=== PATIENT | male | born 1945 | race Hispanic/Latino ===

== ENCOUNTER 2017-07-07 03:53 | Observation (INO) | payer OTHER, MEDICARE ==
[~2017-07-07] VITALS: Ht 175.3 cm; Wt 87.3 kg
[~2017-07-07 03:53] MED LIST: ASPI-555 PO; CETI10TA57 PO; CLOP75TA14 PO; FURO40TA5 PO; GABA-531 PO; HUMLIS7525 SQ; LISI-617 PO; OMEP40CA37 PO; ROSU20TA PO
[2017-07-07] MEDS ORDERED: IBUPROFEN 400 MG TABLET ONE (03:59)
[2017-07-07] MEDS ORDERED: SODIUM CHLORIDE 0.9% 1000ML 1,000 ML IV ONE ×2 (03:59→05:59)
[2017-07-07 04:20] LABS: BASOPHILS % (AUTO) 0.9 % (0.0-5.0); EOSINOPHILS % (AUTO) 1.1 % (0.0-8.0); MEAN CORPUSCULAR HEMOGLOBIN 30.9 pg (27.0-33.0); MEAN CORPUSCULAR HGB CONC 33.9 g/dL (32.0-36.0); MEAN CORPUSCULAR VOLUME 91.2 fL (79-99); MONOCYTES % (AUTO) 5.2 % (3.0-13.0); NEUTROPHILS % (AUTO) 84.8 % (40.0-77.0); PLATELET COUNT (AUTO) 212 K/uL (130-400); RED CELL DISTRIBUTION WIDTH 13.8 % (11.0-15.5); WHITE BLOOD COUNT (AUTO) 13.4 K/uL (4.8-10.8)
[2017-07-07 04:29] LABS: CARBON DIOXIDE 25 mmol/L (21-32); CHLORIDE 99 mmol/L (101-111); CREATININE 2.3 mg/dL (0.5-1.5); GLOMERULAR FILTR. RATE CALC 30 mL/min (>60); GLUCOSE,RANDOM 164 mg/dL (70-105); POTASSIUM 4.6 mmol/L (3.5-5.1); SODIUM SERUM 137 mmol/L (136-145); UREA NITROGEN, BLOOD 32 mg/dL (7-18)
[2017-07-07] MEDS ORDERED: ONDANSETRON HCL 4 MG/2 ML VIAL ONE (04:31)
[2017-07-07] MEDS ORDERED: CEFTRIAXONE SODIUM 1 GM ONE (04:31)
[2017-07-07 04:32] LABS: INR 1.09 (0.85-1.15); PARTIAL THROMBOPLASTIN TIME 28.4 SEC (26.3-35.5); PROTHROMBIN TIME 11.4 SEC (9.6-11.6)
[2017-07-07] MEDS ORDERED: MORPHINE SULFATE 4 MG/1ML SYG ONE (04:32)
[2017-07-07 04:38] LABS: APPEARANCE,URINE Turbid (CLEAR); BILIRUBIN,URINE Negative (NEGATIVE); COLOR,URINE Yellow (YELLOW); GLUCOSE, URINE (UA) Negative (NEGATIVE); KETONES,URINE Trace mg/dL (NEGATIVE); LEUKOCYTE ESTERASE ,URINE Large (NEGATIVE); NITRATE,URINE Negative (NEGATIVE); OCCULT BLOOD,URINE Moderate (NEGATIVE); PH,URINE 5.5 (5.0-8.0); PROTEIN,URINE 300 (NEGATIVE)
[2017-07-07 04:44] LABS: ALANINE AMINOTRANSFERASE 19 U/L (12-78); ALBUMIN 3.8 g/dL (3.5-5.0); ASPARTATE AMINOTRANSFERASE 20 U/L (10-37); BILIRUBIN,TOTAL 0.9 mg/dL (0.2-1.0); CREATINE KINASE MB 1.1 ng/mL (0.5-3.6); CREATINE KINASE, TOTAL 123 U/L (21-232); MYOGLOBIN 141 ng/mL (10-92); TOTAL PROTEIN, SERUM 8.3 g/dL (6.0-8.3); TROPONIN I < 0.04 ng/mL (0.00-0.06)
[2017-07-07 04:54] LABS: BACTERIA,URINE Few /HPF (None Seen); MUCUS,URINE Rare LPF (None Seen); SQUAMOUS EPITHELIAL CELL,UR Rare /LPF (0-2)
[2017-07-07 04:55] LABS: AMORPHOUS SEDIMENT,UR Few /LPF (None Seen)
[2017-07-07] MEDS ORDERED: SODIUM CHLORIDE 0.9% 1000ML 1,000 ML IV SCH (06:59)
[2017-07-07] MEDS ORDERED: HYDRALAZINE HCL 20 MG/ML VIAL IV PRN (07:00)
[2017-07-07] MEDS ORDERED: ACETAMINOPHEN 325 MG TAB PO PRN ×2 (07:00)
[2017-07-07] MEDS ORDERED: GUAIFENESIN-DM 200/20 MG 10 ML PO PRN (07:00)
[2017-07-07] MEDS ORDERED: CEFTRIAXONE 1GM/D5W 50ML 50 ML IV SCH (07:00)
[2017-07-07] MEDS ORDERED: NITROGLYCERIN 0.4 MG SL TAB SL PRN (07:00)
[2017-07-07] MEDS: INSULIN HUMULIN R 100 UNIT/ML 3ML SQ SCH ×4 (07:30→21:48)
[2017-07-07 07:35] VITALS: BP 111/68
[2017-07-07] MEDS ORDERED: CEFTRIAXONE SODIUM 1 GM IVP SCH (09:00)
[2017-07-07] MEDS ORDERED: MORPHINE SULFATE 4 MG/1ML SYG IV PRN (09:30)
[2017-07-07] MEDS: MORPHINE SULFATE 2 MG/ML 1ML SYG IVP PRN ×2 (09:49→18:13)
[2017-07-07] MEDS: FAMOTIDINE 20MG TAB 20 MG TAB PO SCH ×2 (09:50→21:50)
[2017-07-07] MEDS: ONDANSETRON HCL 4 MG/2 ML VIAL IV PRN (09:51)
[2017-07-07] MEDS ORDERED: MEROPENEM 500MG+NS 50ML 50 ML IV SCH (10:15)
[2017-07-07 11:00] VITALS: BP 98/60
[2017-07-07] MEDS: MEROPENEM 500 MG VIAL IVP SCH ×2 (11:30→18:13)
[2017-07-07 12:32] VITALS: BP 128/69
[2017-07-07 13:46] LABS: ABG BASE EXCESS -6.9 mmol/L (-2.0-3.0); ABG HCO3 16.7 mmol/L (21.0-28.0); ABG PCO2 29 mmHg (35-48)
[2017-07-07 15:00] VITALS: BP 101/57
[2017-07-07 19:05] VITALS: BP 118/68
[2017-07-07 23:05] VITALS: BP 120/68
[2017-07-08 03:45] VITALS: BP 135/71
[2017-07-08] MEDS ORDERED: WATER FOR INJECTION,STERILE 20 ML VIAL ONE ×2 (03:57→20:23)
[2017-07-08] MEDS: MEROPENEM 500 MG VIAL IVP SCH ×3 (04:01→21:54)
[2017-07-08 06:20] LABS: HEMATOCRIT 35.8 % (42-54); MEAN CORPUSCULAR HEMOGLOBIN 30.7 pg (27.0-33.0); MEAN CORPUSCULAR HGB CONC 33.6 g/dL (32.0-36.0); MEAN CORPUSCULAR VOLUME 91.4 fL (79-99); PLATELET COUNT (AUTO) 123 K/uL (130-400); RED BLOOD CELL COUNT(AUTO) 3.91 MIL/uL (4.50-6.20); RED CELL DISTRIBUTION WIDTH 13.8 % (11.0-15.5); WHITE BLOOD COUNT (AUTO) 17.1 K/uL (4.8-10.8)
[2017-07-08 06:27] LABS: CREATININE 2.3 mg/dL (0.5-1.5); POTASSIUM 4.7 mmol/L (3.5-5.1)
[2017-07-08] MEDS: MORPHINE SULFATE 2 MG/ML 1ML SYG IVP PRN (06:29)
[2017-07-08] MEDS ORDERED: GABAPENTIN 300 MG CAPSULE PO PRN (06:30)
[2017-07-08] MEDS: INSULIN HUMULIN R 100 UNIT/ML 3ML SQ SCH ×4 (06:58→23:14)
[2017-07-08] MEDS: LISINOPRIL 5 MG TABLET PO SCH ×2 (08:43→09:00)
[2017-07-08] MEDS: ASPIRIN 81 MG EC TAB PO SCH (08:43)
[2017-07-08] MEDS: FAMOTIDINE 20MG TAB 20 MG TAB PO SCH ×2 (08:44→21:55)
[2017-07-08] MEDS: ATORVASTATIN CALCIUM 40 MG TABLET PO SCH (08:44)
[2017-07-08] MEDS: ONDANSETRON HCL 4 MG/2 ML VIAL IV PRN (08:44)
[2017-07-08] MEDS: CETIRIZINE HCL 5 MG TABLET PO SCH (08:44)
[2017-07-08] MEDS: CLOPIDOGREL BISULFATE 75 MG TAB PO SCH (08:44)
[2017-07-08] MEDS: PANTOPRAZOLE SODIUM 40 MG TABLET.DR PO SCH (08:45)
[2017-07-08 09:09] VITALS: BP 111/92
[2017-07-08 12:00] VITALS: BP 109/54
[2017-07-08] MEDS ORDERED: MAGNESIUM CITRATE 296 ML SOLUTION PO SCH (15:30)
[2017-07-08 16:00] VITALS: BP 135/71
[2017-07-08 19:30] VITALS: BP 107/59
[2017-07-08 23:50] VITALS: BP 121/66
[2017-07-09 04:11] LABS: HEMATOCRIT 29.7 % (42-54); MEAN CORPUSCULAR HEMOGLOBIN 32.5 pg (27.0-33.0); MEAN CORPUSCULAR HGB CONC 36.2 g/dL (32.0-36.0); MEAN CORPUSCULAR VOLUME 89.7 fL (79-99); PLATELET COUNT (AUTO) 131 K/uL (130-400); RED BLOOD CELL COUNT(AUTO) 3.32 MIL/uL (4.50-6.20); WHITE BLOOD COUNT (AUTO) 13.9 K/uL (4.8-10.8)
[2017-07-09 04:14] LABS: CREATININE 2.2 mg/dL (0.5-1.5); POTASSIUM 3.7 mmol/L (3.5-5.1)
[2017-07-09 04:18] VITALS: BP 121/66
[2017-07-09] MEDS: INSULIN HUMULIN R 100 UNIT/ML 3ML SQ SCH ×2 (06:21→12:28)
[2017-07-09] MEDS: MEROPENEM 500 MG VIAL IVP SCH ×2 (06:30→11:47)
[2017-07-09 08:20] VITALS: BP 122/68
[2017-07-09] MEDS: LISINOPRIL 5 MG TABLET PO SCH (09:00)
[2017-07-09] MEDS: CLOPIDOGREL BISULFATE 75 MG TAB PO SCH (09:05)
[2017-07-09] MEDS: CETIRIZINE HCL 5 MG TABLET PO SCH (09:05)
[2017-07-09] MEDS: ATORVASTATIN CALCIUM 40 MG TABLET PO SCH (09:05)
[2017-07-09] MEDS: FAMOTIDINE 20MG TAB 20 MG TAB PO SCH (09:05)
[2017-07-09] MEDS: ASPIRIN 81 MG EC TAB PO SCH (09:05)
[2017-07-09] MEDS: PANTOPRAZOLE SODIUM 40 MG TABLET.DR PO SCH (09:05)
[2017-07-09] MEDS ORDERED: CIPR250T6 PO (10:08)
[2017-07-09 11:30] VITALS: BP 123/71
== END 2017-07-09 13:50 | disposition home or self-care (01) ==
LOC: EDH 03:53 → EDHIP 06:17 → 3AH 07:18
PROVIDERS: ADMIT Internal Medicine; ATTEND Internal Medicine
DX: A41.9 Sepsis, unspecified organism (principal); N39.0 Urinary tract infection, site not specified; I25.10 Atherosclerotic heart disease of native coronary artery without angina pectoris; I12.9 Hypertensive chronic kidney disease with stage 1 through stage 4 chronic kidney disease, or unspecified chronic kidney disease; E11.22 Type 2 diabetes mellitus with diabetic chronic kidney disease; N18.3 Chronic kidney disease, stage 3 (moderate); Z82.49 Family history of ischemic heart disease and other diseases of the circulatory system; E78.5 Hyperlipidemia, unspecified; Z95.1 Presence of aortocoronary bypass graft
CPT/HCPCS: 36415 ×3; 36600; 71045; 80048 ×2; 80053; 81001; 82550; 82553; 82803; 82948 ×9; 83605 ×2; 83874; 84484; 85025; 85027 ×2; 85610; 85730; 87040; 87088; 87186; 87804 ×2; 93005 ×2; 96372 ×3; 96374; 96375; 96376 ×3; 99285; A4218 ×3; G0378 ×56; J0696 ×2; J1815 ×7; J2185 ×8; J2270; J2405 ×3; J7030 ×2

== ENCOUNTER 2017-07-19 15:01 | Emergency (ER) | payer OTHER, MEDICARE ==
[~2017-07-19 15:01] MED LIST changes: +CALCIUM CHLORIDE 100 MG/ML 10 ML SYG IVP ONE; +CIPR250T6 PO; +DEXTROSE 50%-WATER 50 ML DISP.SYRIN IV ONE; +EPINEPHRINE 0.1 MG/ML 10 ML SYG IVP ONE; +MAGNESIUM SULFATE 1 GM/2 ML VIAL IM ONE
[2017-07-19 15:27] LABS: BASOPHILS % (AUTO) 0.7 % (0.0-5.0); EOSINOPHILS % (AUTO) 2.3 % (0.0-8.0); HEMATOCRIT 34.2 % (42-54); LYMPHOCYTES % (AUTO) 27.8 % (21.0-51.0); MEAN CORPUSCULAR HEMOGLOBIN 31.5 pg (27.0-33.0); MEAN CORPUSCULAR HGB CONC 32.2 g/dL (32.0-36.0); MEAN CORPUSCULAR VOLUME 97.7 fL (79-99); NEUTROPHILS % (AUTO) 64.2 % (40.0-77.0); NUCLEATED RED BLOOD CELLS 0.1 % (0.0-0.19); PLATELET COUNT (AUTO) 197 K/uL (130-400); RED CELL DISTRIBUTION WIDTH 14.7 % (11.0-15.5); WHITE BLOOD COUNT (AUTO) 14.4 K/uL (4.8-10.8)
[2017-07-19 15:53] LABS: ALBUMIN 2.2 g/dL (3.5-5.0); BILIRUBIN,DIRECT 0.1 mg/dL (0.0-0.3); BILIRUBIN,TOTAL 0.4 mg/dL (0.2-1.0); CREATININE 2.5 mg/dL (0.5-1.5); POTASSIUM 4.3 mmol/L (3.5-5.1); TOTAL PROTEIN, SERUM 5.7 g/dL (6.0-8.3)
[2017-07-19 16:00] LABS: APPEARANCE,URINE Turbid (CLEAR); BILIRUBIN,URINE Negative (NEGATIVE); COLOR,URINE Orange (YELLOW); GLUCOSE, URINE (UA) Negative (NEGATIVE); KETONES,URINE Negative (NEGATIVE); LEUKOCYTE ESTERASE ,URINE Trace (NEGATIVE); NITRATE,URINE Negative (NEGATIVE); OCCULT BLOOD,URINE Large (NEGATIVE); PH,URINE 5.5 (5.0-8.0); PROTEIN,URINE POS 2+ (NEGATIVE); UROBILINOGEN,URINE 0.2 mg/dL (0.2-1.0)
[2017-07-19 16:07] LABS: AMPHET/METH SCREEN,URINE NEGATIVE (NEGATIVE); BARBITURATE SCREEN, URINE NEGATIVE (NEGATIVE); BENZODIAZEPINES SCREEN,URINE NEGATIVE (NEGATIVE); CANNABINOID SCREEN,URINE NEGATIVE (NEGATIVE); COCAINE SCREEN,URINE NEGATIVE (NEGATIVE); OPIATE SCREEN,URINE NEGATIVE (NEGATIVE); PHENCYCLIDINE SCREEN,URINE NEGATIVE (NEGATIVE)
[2017-07-19 16:41] LABS: BACTERIA,URINE None Seen /HPF (None Seen); MUCUS,URINE Few LPF (None Seen); RBC,URINE >100 /HPF (0-1); SQUAMOUS EPITHELIAL CELL,UR 0-2 /LPF (0-2); WBC,URINE 0-1 /HPF (0-1)
[2017-07-19 16:42] LABS: SPERM,URINE Moderate /HPF (None Seen)
== END 2017-07-19 17:47 | disposition expired ==
LOC: EDH 15:01
DX: I46.9 Cardiac arrest, cause unspecified (principal); I10 Essential (primary) hypertension; E78.5 Hyperlipidemia, unspecified; E11.9 Type 2 diabetes mellitus without complications; I25.810 Atherosclerosis of coronary artery bypass graft(s) without angina pectoris; Z95.1 Presence of aortocoronary bypass graft; Z88.6 Allergy status to analgesic agent; Z79.899 Other long term (current) drug therapy
CPT/HCPCS: 36415; 71045 ×2; 80048; 80076; 80305; 81001; 82948; 83605; 83690; 84484; 85025; 92950; 93005; 99291; J0171; J3475; J3490; J7070